=== PATIENT | female | born 1940 | race Caucasian/White ===

== ENCOUNTER → 2019-06-07 | Outpatient (CLI) | payer MEDICARE, OTHER ==
[2019-06-07 15:13] LABS: BASO % 0.1 % (0.0-1.0); EOS % 0.1 % (0.0-3.0); HEMATOCRIT 36.8 % (36.0-47.0); HEMOGLOBIN 12.4 g/dl (12.0-15.5); LYMPH # 1.4 10^3/uL (1.5-5.0); MEAN CORPUSCULAR HEMOGLOBIN 31.4 pg (27.0-33.0); MEAN CORPUSCULAR HGB CONC 33.7 g/dl (32.0-36.5); MEAN CORPUSCULAR VOLUME 93.2 fl (80.0-96.0); MONO # 0.4 10^3/uL (0.0-0.8); MONO % 5.6 % (0.0-5.0); NEUTROPHILS # 5.7 10^3/uL (1.5-8.5); NEUTROPHILS % 74.9 % (36.0-66.0); PLATELET COUNT, AUTOMATED 239 10^3/uL (150-450); RED BLOOD COUNT 3.95 10^6/uL (4.00-5.40); WHITE BLOOD COUNT 7.6 10^3/uL (4.0-10.0)
[2019-06-07 15:43] LABS: ALBUMIN 3.6 GM/DL (3.2-5.2); ALT/SGPT 27 U/L (12-78); BILIRUBIN,TOTAL 0.6 MG/DL (0.2-1.0); BLOOD UREA NITROGEN 16 MG/DL (7-18); C REACTIVE PROTEIN QUANTITATIV < 0.30 MG/DL (0.00-0.30); CALCIUM LEVEL 9.3 MG/DL (8.8-10.2); CARBON DIOXIDE LEVEL 23 MEQ/L (21-32); CHLORIDE LEVEL 110 MEQ/L (98-107); CREATININE FOR GFR 0.79 MG/DL (0.55-1.30); GLOMERULAR FILTRATION RATE > 60.0 (>39); GLUCOSE, FASTING 112 MG/DL (70-100); IRON (FE) 74 UG/DL (50-170); PERCENT SATURATION 21.8 % (13.2-45.0); POTASSIUM SERUM 4.3 MEQ/L (3.5-5.1); SODIUM LEVEL 142 MEQ/L (136-145); TOTAL IRON BINDING CAPACITY 340 UG/DL (250-450); TOTAL PROTEIN 7.4 GM/DL (6.4-8.2)
[2019-06-07 15:47] LABS: VITAMIN B12 LEVEL 380 PG/ML (247-911)
== END ==
LOC: M LAB 14:18
PROVIDERS: ATTEND Internal Medicine Gastroenterology
DX: K50.018 Crohn's disease of small intestine with other complication (principal)

== ENCOUNTER → 2019-06-09 | Outpatient (REF) | payer MEDICARE, OTHER | LOC: M LAB REF 14:51 | PROVIDERS: ATTEND Internal Medicine Gastroenterology | DX: R19.4 Change in bowel habit (principal) ==

== ENCOUNTER → 2019-09-30 | Outpatient (CLI) | payer MEDICARE, OTHER | LOC: M LABSMTC 08:45 | PROVIDERS: ATTEND Orthopaedic Surgery | DX: Z11.59 Encounter for screening for other viral diseases (principal) | CPT/HCPCS: C9803; U0003 ==

== ENCOUNTER → 2020-07-05 | Outpatient (CLI) | payer MEDICARE, OTHER ==
[~2020-07-05] MED LIST: BUDE3CAP PO; CALC1TAB30 PO; CETI-36 PO; COLE625T PO; COQ1200C PO; EZET10TA21 PO; FERR325T82 PO; FURO20TA2 PO; JANU100T PO; METF10004 PO; METO1TAB7 PO; MIRA0.12 PO; OMEG1CAP85 PO; OMEP-218 PO; REST0.05 OU; ROSU10TA6 PO; SLOWTAB2 PO; VALS1TAB67 PO; VITMTA PO; [UNRECOGNIZED DRUG - CODE] PO
== END ==
LOC: M LABSMTC 12:49
PROVIDERS: ATTEND Anesthesiology
DX: Z01.812 Encounter for preprocedural laboratory examination (principal); Z20.828 Contact with and (suspected) exposure to other viral communicable diseases

== ENCOUNTER 2020-07-10 07:55 | Day surgery (SDC) | payer MEDICARE, OTHER ==
[~2020-07-10] VITALS: Ht 162.6 cm; Wt 62.1 kg
[~2020-07-10 07:55] MED LIST changes: +ALBUTEROL SULFATE 2.5 MG/0.5 ML INH NEB SOLN INH ONE; +CETACAINE SPRAY 5GM As Ordered ONE; +EPINEPHrine 1MG/10ML SYRINGE 1.5IN As Ordered ONE; +LIDOCAINE 1% SDV 30ML VIAL As Ordered ONE; +LIDOCAINE 4% INJ 5ML AMP INH ONE; +LR 1,000 ML IV ONE; +THROMBIN SOLN 5,000 UNITS VIAL As Ordered ONE
[2020-07-10] MEDS ORDERED: propofoL 200 MG/20 ML VIAL As Ordered ONE (08:18)
[2020-07-10] MEDS ORDERED: LIDOCAINE 2% 100MG/5ML SDV (FOR ANES.) As Ordered ONE (08:18)
[2020-07-10] MEDS ORDERED: dexameTHASONE 4 MG/ML 1ML VIAL (J1100 PER 1MG) As Ordered ONE (08:19)
[2020-07-10] MEDS ORDERED: MIDAZOLAM INJ 2MG/2ML VIAL (J2250 PER 1MG) As Ordered ONE (08:19)
[2020-07-10] MEDS ORDERED: ONDANSETRON 4MG/2ML VIAL As Ordered ONE (08:19)
[2020-07-10] MEDS ORDERED: fentaNYL 100 MCG/2 ML INJECTION (J3010) As Ordered ONE (08:19)
[2020-07-10] MEDS ORDERED: ROCURONIUM BROMIDE 50 MG/5 ML VIAL As Ordered ONE (08:19)
[2020-07-10] MEDS ORDERED: CETACAINE SPRAY 5GM As Ordered ONE (09:16)
[2020-07-10] MEDS ORDERED: SUGAMMADEX SODIUM 500 MG/5 ML VIAL (BRIDION) As Ordered ONE (10:16)
[2020-07-10] MEDS ORDERED: PHENYLephrine 500MCG 5ML (100MCG/ML) SYRINGE As Ordered ONE (10:17)
--- NOTE | 2020-07-10 11:14 | ROOR ---
Patient Name: Tami Benitez Procedure Date: 07/10/2020 9:28 AM Date of : 1940 Admit Type: Outpatient Age: 80 Note Status: Finalized Attending MD: Rissa Joe MD Procedure: Bronchoscopy Indications: Right lower lobe nodule Providers: Rissa Joe MD (Doctor), [facility] Referring MD: Hernán Montejo DO (Referring MD) Requesting Physician: Medicines: Lidocaine 4% via nebulizer with Albuterol 2.5 mg, Cetacaine topical, Epinephrine 1 mg/10 mL topical 1 mL, General Anesthesia Complications: No immediate complications. Estimated blood loss: Minimal Procedure: Pre-Anesthesia Assessment: - Prior to the procedure, a History and Physical was performed, and patient medications and allergies were reviewed. The patient's tolerance of previous anesthesia was also reviewed. The risks and benefits of the procedure and the sedation options and risks were discussed with the patient. All questions were answered, and informed consent was obtained. Prior Anticoagulants: The patient has taken no previous anticoagulant or antiplatelet agents. ASA Grade Assessment: III - A patient with severe systemic disease. After reviewing the risks and benefits, the patient was deemed in satisfactory condition to undergo the procedure. - Patient identification and proposed procedure were verified prior to the procedure by the physician, the nurse, the anesthesiologist, the lead coater and the occupational therapy technician. The procedure was verified in the procedure room. The Bronchoscope was introduced through the mouth, via the endotracheal tube (the patient was intubated for the procedure) and advanced to the tracheobronchial tree of both lungs. The procedure was accomplished without difficulty. The patient tolerated the procedure well. Findings: The endotracheal tube is in good position. The visualized portion of the trachea is of normal caliber. The henrry is sharp. The tracheobronchial tree was examined to at least the first subsegmental level. Bronchial mucosa and anatomy are normal with some mucosal webbing and pitting and areas of anthracotic pigmentation noted. There was no endobronchial lesions and no significant secretions noted. [id number] robotic Electromagnetic navigation bronchoscopy was performed. The CT scan was used for planning purposes. A virtual bronchoscopic image was generated using the planning software. The target in the posterior basal segment of the right lower lobe was marked. A nodule 2 cm in size was found and a pathway was created. After a complete airway examination was performed using a white light bronchoscope the robotic EM navigation phase was then begun to locate the target lesion(s). During naviation in the bronchus leading to target lesion in the distal subsegmental branch of the right lower lobe posterior basal segment the mucosa appeared edematous and there was some narrowing of the airway noted. Positioning centrally (in relation to the lesion) was confirmed using the Olympus radial probe US catheter. Transbronchial biopsies of a nodule were performed in the posterior basal segment of the right lower lobe using forceps and sent for histopathology examination. The procedure was guided by fluoroscopy. Transbronchial biopsy technique was selected because the sampling site was not visible endoscopically. An endobronchial ultrasound endoscope was utilized in the right paratracheal area, in the subcarinal area and in the right hilum to assess the lymph nodes. There were no pathologically enlarged lymph nodes noted at those sites and no needle aspiration performed. Impression: - Right lower lobe nodule - The airway examination was normal. - Electromagnetic navigation bronchoscopy was performed. - Transbronchial lung biopsies were performed. - Endobronchial ultrasound was performed. Recommendation: - The patient will be observed post-procedure, until all discharge criteria are met. Procedure Code(s): --- Professional --- 03617, Bronchoscopy, rigid or flexible, including fluoroscopic guidance, when performed; with transbronchial lung biopsy(s), single lobe 30144, Bronchoscopy, rigid or flexible, including fluoroscopic guidance, when performed; with computer-assisted, image-guided navigation (List separately in addition to code for primary procedure[s]) 42233, Bronchoscopy, rigid or flexible, including fluoroscopic guidance, when performed; with transendoscopic endobronchial ultrasound (EBUS) during bronchoscopic diagnostic or therapeutic intervention(s) for peripheral lesion(s) (List separately in addition to code for primary procedure[s]) CPT copyright 2019 [employer] [place] [employer]. All rights reserved. The codes documented in this report are preliminary and upon line assembly utility worker review may be revised to meet current compliance requirements. Rissa Joe MD 07/10/2020 11:13:51 AM Carter Tee DO, [facility] Number of Addenda: 0 Note Initiated On: 07/10/2020 9:28 AM
[2020-07-10] MEDS ORDERED: ONDANSETRON 4MG/2ML VIAL IV PRN (11:20)
[2020-07-10] MEDS ORDERED: NORCO, ANEXSIA 5/325MG TABLET (HYDROcodone/ACETAMINOPHEN) PO PRN (11:20)
[2020-07-10] MEDS ORDERED: fentaNYL 100 MCG/2 ML INJECTION (J3010) IV PRN (11:20)
[2020-07-10] MEDS ORDERED: LR 1,000 ML IV SCH (11:20)
--- NOTE | 2020-07-10 11:27 | REP ---
INDICATION: POST BRONCH COMPARISON: None. TECHNIQUE: Portable AP view of the chest FINDINGS: Mediastinum and cardiac silhouette are normal. Lung abarca demonstrate chronic interstitial changes. Superimposed right lower lobe infiltrate and 2 small biopsy clips identified at the right base. No effusion. No pneumothorax. IMPRESSION: Right lower lobe opacity. No prior examinations are available for comparison. <Electronically signed by Ritchie Townsend > 07/10/20 1122
[2020-07-10 12:00] VITALS: BP 174/72
== END 2020-07-10 13:00 | disposition home or self-care (01) ==
LOC: M SDC 07:55
PROVIDERS: ATTEND Internal Medicine Pulmonary Disease
DX: C34.31 Malignant neoplasm of lower lobe, right bronchus or lung (principal); E78.5 Hyperlipidemia, unspecified; I10 Essential (primary) hypertension; E11.9 Type 2 diabetes mellitus without complications; Z98.61 Coronary angioplasty status; F41.9 Anxiety disorder, unspecified; Z79.84 Long term (current) use of oral hypoglycemic drugs; Z79.899 Other long term (current) drug therapy; Z87.891 Personal history of nicotine dependence; Z88.0 Allergy status to penicillin; Z88.1 Allergy status to other antibiotic agents
CPT/HCPCS: 31627; 31628; 31654; 71045; 76000; 88305; A4648; J1100; J2250; J2370; J2405; J3010; S2900

== ENCOUNTER → 2020-08-13 | Outpatient (CLI) | payer MEDICARE, OTHER ==
[~2020-08-13] MED LIST changes: -ALBUTEROL SULFATE 2.5 MG/0.5 ML INH NEB SOLN INH ONE; -CETACAINE SPRAY 5GM As Ordered ONE; -EPINEPHrine 1MG/10ML SYRINGE 1.5IN As Ordered ONE; -LIDOCAINE 1% SDV 30ML VIAL As Ordered ONE; -LIDOCAINE 4% INJ 5ML AMP INH ONE; -LR 1,000 ML IV ONE; -THROMBIN SOLN 5,000 UNITS VIAL As Ordered ONE
--- NOTE | 2020-08-14 08:30 | RADONC.CN ---
Radiation Oncology Hx/Consult Radiation Oncology Consult Date of Service: Aug 13, 2020 Pt Identifier Tami Benitez is a 80 year old female former smoker with a recently diagnosed RLL [id number] stage IA3 NSCLC. She is seen today for consideration of SBRT. Diagnosis/Treatment History Oncologic History 05/27/20 CT chest during hospital admission for UTI/sepsis showed RLL nodule 2 cm in extent sitting on diaphragm, also scattered ground glass opacities. Post- hospitalization course complicated by C diff. 07/10/20 EBUS biopsy (Dr. Joe) showing NSCLC PDL1 1% no target gene rearrangements 08/07/20 PET-CT Avidity in RLL nodule, 2 mildly avid RUL ground glass opacities 06/21/20 PFTs FVC 1.84 (81% pred) FEV1 1.23 (73% pred) FEV1/FVC 67% (90% pred) Borderline obstructive ratio Interval History Here with supportive daughter. Patient notes her breathing is good, she is able to attend to ADLs. Daughter expressed concerns regarding memory since her hospitalizations in May and more recently notable since anesthesia for bronch oscopy. Tami has good appetite and is maintaining stable weight. She has minimal cough, no hemoptysis. Past Medical History: Anemia Osteoarthritis C diff CVD Crohns GERD HPL HTN RLS Past Surgical History: Appendectomy PCI w/ stents Cataracts Hysterectomy Subtotal colectomy Right knee surgery Tonsillectomy Family History: Daughter breast cancer Daughter ovarian cancer Social History: 20 pack year former smoker quit 1990s Non drinker Retired RN Allergies / Meds Allergies: Coded Allergies: DYE'S (COLOR'S NOT IODINATED) (Verified Allergy, Unknown, FD&C # 5, 02/19/14) Penicillins (Verified Allergy, Unknown, 07/09/20) TAPE (Verified Allergy, Unknown, BANDAIDS, 11/16/14) brompheniramine (Verified Allergy, Unknown, FROM DIMETANE, 07/09/20) erythromycin base (Verified Allergy, Unknown, 07/09/20) tetracycline (Verified Allergy, Unknown, 07/09/20) Home Meds Reported Medications Magnesium Chloride (Slow-Mag) 71.5 Mg Tablet., 1 TAB PO BID, TAB 07/05/20 Multivitamins (Thera M Plus Tablet) 1 Each Tablet, 1 TAB PO DAILY, TAB 07/05/20 Guaifenesin (Mucus Relief) 400 Mg Tablet, 400 MG PO DAILY, TAB 07/05/20 Ferrous Sulfate (Iron) 325 Mg Tablet, 325 MG PO DAILY, TAB 07/05/20 Ubidecarenone (Co Q-10) 200 Mg Capsule, 200 MG PO DAILY, CAP 07/05/20 Cetirizine HCl (ZyrTEC) 10 Mg Tab.rapdis, 10 MG PO DAILY 07/05/20 Calcium Carbonate/Vitamin D3 (Calcium 500-Vit D3 200 Caplet) 1 Each Tablet, 1 TAB PO DAILY, TAB 07/05/20 Cyclosporine (Restasis) 0.05% Droperette, 1 DROP OU BID 07/05/20 Metformin HCl (Metformin HCl) 1,000 Mg Tablet, 1000 MG PO BID 07/05/20 Ezetimibe (Ezetimibe) 10 Mg Tablet, 10 MG PO DAILY 07/05/20 Rosuvastatin Calcium (Rosuvastatin Calcium) 10 Mg Tablet, 10 MG PO DAILY 07/05/20 Valsartan (Valsartan) 160 Mg Tablet, 320 MG PO DAILY 07/05/20 Omeprazole (Omeprazole) 20 Mg Capsule.dr, 20 MG PO DAILY 07/05/20 Budesonide (Budesonide EC) 3 Mg Capdr...er, 9 MG PO DAILY 07/05/20 Colesevelam HCl (Colesevelam HCl) 625 Mg Tablet, 1250 MG PO DAILY 07/05/20 Pramipexole Di-HCl (Mirapex) 0.125 Mg Tablet, 0.125 MG PO DAILY 07/05/20 Sitagliptin Phosphate (Januvia) 100 Mg Tablet, 100 MG PO DAILY 07/05/20 Metoprolol Succinate (Metoprolol Succinate) 50 Mg Tab.er.24h, 50 MG PO DAILY 07/05/20 Furosemide (Furosemide) 20 Mg Tablet, 20 MG PO DAILY 07/05/20 [place]-3 Acid Ethyl Esters ([place]-3 Acid Ethyl Esters) 1 Gm Capsule, 1 GM PO DAILY 07/05/20 Review of Systems General: Reports: Normal Appetite Constitutional: Denies: Chills, Fever, Night Sweats Eyes: Denies: Pain, Vision change HEENT: Denies: Head Aches, Dysphagia, Sore Throat Skin: Denies: Rash, Lesions, Bruising Pulmonary: Denies: Dyspnea, Cough Cardiovascular: Denies: Chest Pain, Palpitations, Edema Gastrointestinal: Denies: Nausea, Vomiting, Abdominal Pain, Diarrhea Genitourinary: Denies: Dysuria, Frequency, Incontinence Hematologic: Denies: Bruising, Petecchia, Enlarged Lymph Nodes Musculoskeletal: Denies: Neck pain, Back pain Neurological: Denies: Weakness, Numbness, Incoordination Psych: Reports: Mood Normal, Memory Issues; Denies: Thoughts of Self Harm Vital Signs Ht 62" Wt 131 lbs BMI 24 P 103 RR 18 BP 126/67 O2 98% Pain 0 Fatigue 1 General Exam: Positive: Alert, Cooperative, No Acute Distress, Oriented Times Three Eye Exam: Positive: PERRLA, EOMI ENT EXAM: Positive: Atraumatic Neck Exam: Positive: Supple Chest Exam: Positive: Clear to auscultation, Normal air movement; Negative: Wheezing, Diminished Heart Exam: Positive: Rate Normal, Regular Rhythm Abdomen Exam: Positive: Soft; Negative: Tenderness Extremity Exam: Positive: Edema (1+ pretibial BL) Skin Exam: Positive: Nl turgor and temperature Neuro Exam: Positive: Normal Gait, Normal Speech, Cranial Nerves 3-12 NL Psych Exam: Positive: Mental status NL, Other (Flat affect/? masked facies, no tremor noted) Diagnostic and Laboratory Diagnostic Review Radiologic images, relevant labs and pathology reports were personally reviewed and discussed with Ms. Benitez. Assessment and Plan Impression Ms. Benitez is a 80 year old female with a history of former smoker with a recently diagnosed RLL [id number] stage IA3 NSCLC. She is seen today for consideration of SBRT. Stage RLL NSCLC [id number] stage IA3 Performance Status ECOG 1 Plan We had an extensive discussion with Ms. Benitez regarding the diagnosis at hand and available therapeutic options. She seems to have recovered from her recent bouts of infection. I wonder if her reported memory issues are residual from acute illness, or from anesthesia for her bronchoscopy. At any rate given her stage, routine MRI for staging is not indicated, but I will have a low threshold for neuroimaging if she, or her daughter, perceive worsening cognitive function from here on. I reviewed her imaging with her and she has a 2 cm lesion sitting on the diaphragm. Its location is favorable for SBRT. I would give 60 Gy in 5 fractions with DCA/4DCT/ITV based planning. This will be minimally morbid for her and caries a high probability of durable local control. I explained that we would monitor the additional ground glass foci in the RUL and if they coalesce into nodular lesions, then we could proceed with SBRT again, and I would be comfortable doing so without biopsy given her age and seeming poor tolerance of anesthesia. We discussed the logistics of receiving radiation therapy in detail including the need for a 1-time planning session. This can occur in the next week. We reviewed the side effects of treatment including fatigue, 5-10% pneumonitis risk and late fibrosis. After discussing the risks, benefits and alternatives to radiation therapy, Ms. Benitez was amenable to pursuing radiotherapy. All questions were answered to the patient's satisfaction. We instructed the patient that if there were any questions,concerns or changes in clinical status in the interim to contact us. Recommendations SBRT 60 Gy in 5 fractions with DCA/4DCT/ITV planning Simulation in the next week Will hold on brain imaging for now Billing Statement Total time of [48] minutes was spent preparing for the visit [2], obtaining HPI [10], examining the patient [4], reviewing diagnostic tests [5], discussing olivia gement options [15], coordinating care [3], and writing this note [9]. VICKI PRASAD MD Aug 14, 2020 08:30
== END ==
LOC: M ONCR 14:23
PROVIDERS: ATTEND General Practice
DX: C34.31 Malignant neoplasm of lower lobe, right bronchus or lung (principal); E78.5 Hyperlipidemia, unspecified; I10 Essential (primary) hypertension; K21.9 Gastro-esophageal reflux disease without esophagitis; K50.90 Crohn's disease, unspecified, without complications; M12.9 Arthropathy, unspecified; Z79.84 Long term (current) use of oral hypoglycemic drugs; Z79.899 Other long term (current) drug therapy; Z87.891 Personal history of nicotine dependence; Z88.0 Allergy status to penicillin; Z88.1 Allergy status to other antibiotic agents; Z88.8 Allergy status to other drugs, medicaments and biological substances; Z91.048 Other nonmedicinal substance allergy status; Z91.09 Other allergy status, other than to drugs and biological substances

== ENCOUNTER 2020-09-13 13:50 | Outpatient (RCR) | payer MEDICARE, OTHER ==
[~2020-09-13 13:50] MED LIST changes: +GUAI400T12 PO; -[UNRECOGNIZED DRUG - CODE] PO
== END 2020-09-14 ==
LOC: M ONCR 13:50
PROVIDERS: ATTEND General Practice
DX: C34.31 Malignant neoplasm of lower lobe, right bronchus or lung (principal)

== ENCOUNTER 2020-11-25 14:40 | Outpatient (CLI) | payer MEDICARE, OTHER ==
[~2020-11-25] VITALS: Ht 154.9 cm; Wt 58.5 kg
[2020-11-25 15:00] VITALS: BP 174/74
[2020-11-25] MEDS ORDERED: VEDOLIZUMAB 300 MG in NS 250 ML IV ONE (15:00)
[2020-11-25 16:35] VITALS: BP 155/65
[2020-11-25] MEDS ORDERED: CRES10TA PO (16:36)
== END 2020-11-25 16:35 | disposition home or self-care (01) ==
LOC: M INFU 14:40
PROVIDERS: ATTEND Internal Medicine Gastroenterology
DX: K50.90 Crohn's disease, unspecified, without complications (principal); Z88.0 Allergy status to penicillin; Z88.1 Allergy status to other antibiotic agents; Z91.048 Other nonmedicinal substance allergy status
CPT/HCPCS: 96365; J3380

== ENCOUNTER 2020-12-09 14:49 | Outpatient (CLI) | payer MEDICARE, OTHER ==
[~2020-12-09] VITALS: Ht 154.9 cm; Wt 58.5 kg
[~2020-12-09 14:49] MED LIST changes: +CRES10TA PO; -GUAI400T12 PO; +GUAI400T41 PO; +VEDOLIZUMAB 300 MG in NS 250 ML IV ONE
[2020-12-09 15:14] VITALS: BP 130/60
[2020-12-09 16:00] VITALS: BP 140/68
== END 2020-12-09 16:15 | disposition home or self-care (01) ==
LOC: M INFU 14:49
PROVIDERS: ATTEND Internal Medicine Gastroenterology
DX: K50.90 Crohn's disease, unspecified, without complications (principal); Z88.0 Allergy status to penicillin; Z88.1 Allergy status to other antibiotic agents; Z88.8 Allergy status to other drugs, medicaments and biological substances
CPT/HCPCS: 96365; J3380

== ENCOUNTER → 2020-12-12 | Outpatient (CLI) | payer MEDICARE, OTHER ==
[~2020-12-12] MED LIST changes: +ISOVUE-370 76% 100ML VIAL As Ordered ONE; -VEDOLIZUMAB 300 MG in NS 250 ML IV ONE
--- NOTE | 2020-12-12 15:36 | REPVR ---
PROCEDURE INFORMATION: Exam: CT Chest With Contrast; Diagnostic Exam date and time: 12/12/2020 1:41 PM Age: 80 years old Clinical indication: Condition or disease; Lung condition and disease; Cancer of the lung; Right; Unspecified; Additional info: Lung CA TECHNIQUE: Imaging protocol: Diagnostic computed tomography of the chest with contrast. 3D rendering (Not supervised by radiologist): MIP and/or 3D reconstructed images were created by the technologist. Radiation optimization: All CT scans at this facility use at least one of these dose optimization techniques: automated exposure control; mA and/or kV adjustment per patient size (includes targeted exams where dose is matched to clinical indication); or iterative reconstruction. Contrast material: ISOVUE 370; Contrast volume: 75 ml; Contrast route: INTRAVENOUS (IV); COMPARISON: PET/CT SKULL BASE TO MID THIGH - OUTSIDE PRIOR 08/07/2020 9:50 AM FINDINGS: Thyroid: Cystic lesion measuring 10 x 7 mm involving left lobe the thyroid gland. This appears similar to the noncontrast PET CT portion. Lungs: There is a right lower lobe mass with calcification. Is stable in size. There is a subtle area of ground-glass appearance noted with subtle nodularity in the right upper lobe slightly larger in the skull/area. Subtle area of haziness is again seen stable in the left upper lobe. Stable hazy ground-glass area posteriorly in the right upper lobe. Pleural spaces: Unremarkable. No pneumothorax. No pleural effusion. Heart: Unremarkable. No cardiomegaly. No pericardial effusion. Aorta: Unremarkable. No aortic aneurysm. Lymph nodes: Calcified mediastinal and hilar adenopathy which are subcentimeter in size. Bones/joints: Arthritic [id number] age-related changes in the spine. Soft tissues: Anterior mediastinal stable soft tissue nodule measuring 11 by 10 mm image . IMPRESSION: Stable examination with the exception of slight enlargement of a subtle area of ground-glass appearance with nodularity involving the right upper lobe image /. COMMENTS: Consistent with the [place] [employer]'s Incidental Findings Committee white paper (J Am Aliya Radiol 2015): In patients aged 35 years and older with an incidental thyroid nodule equal to or greater than 1.[address], MRI or extrathyroidal US, further evaluation with dedicated thyroid US is recommended for patients with normal life expectancy and without comorbidities. For smaller nodules without suspicious features, no further evaluation or follow up is recommended. Electronically signed by: Phi Boston On 12/12/2020 15:35:26 PM
== END ==
LOC: M RAD 12:56
PROVIDERS: ATTEND General Practice
DX: C34.31 Malignant neoplasm of lower lobe, right bronchus or lung (principal); R91.8 Other nonspecific abnormal finding of lung field; R93.89 Abnormal findings on diagnostic imaging of other specified body structures; R93.7 Abnormal findings on diagnostic imaging of other parts of musculoskeletal system
CPT/HCPCS: 71260; Q9967

== ENCOUNTER → 2020-12-13 | Outpatient (CLI) | payer MEDICARE, OTHER ==
[~2020-12-13] MED LIST changes: -ISOVUE-370 76% 100ML VIAL As Ordered ONE
--- NOTE | 2020-12-13 16:31 | RADONC ---
Radiation Oncology Hx/FUP Radiation Oncology Hx/FUP Date of Service: Dec 13, 2020 Pt Identifier Tami Benitez is a 80 year old female former smoker seen for a followup visit today at the department of radiation oncology for a history of RLL [id number] stage IA3 NSCLC. She completed SBRT to the lesion 60 Gy in 5 fractions 09/09/20- 09/13/20. Diagnosis/Treatment History Oncologic History 05/27/20 CT chest during hospital admission for UTI/sepsis showed RLL nodule 2 cm in extent sitting on diaphragm, also scattered ground glass opacities. Post- hospitalization course complicated by C diff. 07/10/20 EBUS biopsy (Dr. Joe) showing NSCLC PDL1 1% no target gene rearra ngements 08/07/20 PET-CT Avidity in RLL nodule, 2 mildly avid RUL ground glass opacities 09/09/20-09/13/20 SBRT 60 Gy in 5 fractions Recent data: 12/12/20 CT chest Stable exam. RLL lesion without growth. Survivorship: Test Due Next Last result Notes TSH, T4* 6m post-tx, then q1y N/A Carotid US* q10 y post-tx N/A Smoking cessation Assess annually if applicable N/A Quit >20 years ago Chest imaging As indicated, indefinite CT surveillance 05/202112/12/20 Stable Mammograms Min q1y, in eligible female patients N/A Echocardiogram q10y post treatment if mediastinum treated N/A PFTs As indicated N/A CBC,CMP, Lipids q1y 05/2021 Interval History Here with her daughter, had some fatigue after SBRT but no pulmonary side effects. No CP, SOB today. Appetite good and weight stable. Current Therapy Surveillance Stage RLL [id number] stage IA3 NSCLC Social History: 20 pack year former smoker quit Non drinker Retired RN Allergies / Meds Allergies: Coded Allergies: DYE'S (COLOR'S NOT IODINATED) (Verified Allergy, Unknown, FD&C # 5, 02/19/14) Penicillins (Verified Allergy, Unknown, 07/09/20) TAPE (Verified Allergy, Unknown, BANDAIDS, 11/16/14) brompheniramine (Verified Allergy, Unknown, FROM DIMETANE, 07/09/20) erythromycin base (Verified Allergy, Unknown, 07/09/20) tetracycline (Verified Allergy, Unknown, 07/09/20) Home Meds Reported Medications Rosuvastatin Calcium (Crestor) 10 Mg Tablet, 1 TAB PO DAILY for 30 Days, #30 TAB 11/25/20 Magnesium Chloride (Slow-Mag) 71.5 Mg Tablet.dr, 1 TAB PO BID, TAB 07/05/20 Multivitamins (Thera M Plus Tablet) 1 Each Tablet, 1 TAB PO DAILY, TAB 07/05/20 Guaifenesin (Mucus Relief) 400 Mg Tablet, 400 MG PO DAILY, TAB 07/05/20 Ferrous Sulfate (Iron) 325 Mg Tablet, 325 MG PO DAILY, TAB 07/05/20 Ubidecarenone (Co Q-10) 200 Mg Capsule, 200 MG PO DAILY, CAP 07/05/20 Cetirizine HCl (ZyrTEC) 10 Mg Tab.rapdis, 10 MG PO DAILY 07/05/20 Calcium Carbonate/Vitamin D3 (Calcium 500-Vit D3 200 Caplet) 1 Each Tablet, 1 TAB PO DAILY, TAB 07/05/20 Cyclosporine (Restasis) 0.05% Droperette, 1 DROP OU BID 07/05/20 Metformin HCl (Metformin HCl) 1,000 Mg Tablet, 1000 MG PO BID 07/05/20 Ezetimibe (Ezetimibe) 10 Mg Tablet, 10 MG PO DAILY 07/05/20 Valsartan (Valsartan) 160 Mg Tablet, 320 MG PO DAILY 07/05/20 Omeprazole (Omeprazole) 20 Mg Capsule.dr, 20 MG PO DAILY 07/05/20 Colesevelam HCl (Colesevelam HCl) 625 Mg Tablet, 1250 MG PO DAILY 07/05/20 Pramipexole Di-HCl (Mirapex) 0.125 Mg Tablet, 0.125 MG PO DAILY 07/05/20 Sitagliptin Phosphate (Januvia) 100 Mg Tablet, 100 MG PO DAILY 07/05/20 Metoprolol Succinate (Metoprolol Succinate) 50 Mg Tab.er.24h, 50 MG PO DAILY 07/05/20 Furosemide (Furosemide) 20 Mg Tablet, 20 MG PO DAILY 07/05/20 [place]-3 Acid Ethyl Esters ([place]-3 Acid Ethyl Esters) 1 Gm Capsule, 1 GM PO DAILY 07/05/20 Review of Systems Review of Systems Constitutional: Denies: Fatigue, Weight Loss Eyes: Denies: Pain HEENT: Denies: Head Aches Skin: Denies: Rash Pulmonary: Denies: Dyspnea, Cough Cardiovascular: Denies: Chest Pain Gastrointestinal: Denies: Abdominal Pain Neurological: Denies: Weakness, Numbness Psych: Reports: Mood Normal Physical Examination Vital Signs Wt 131 lbs T 96.6 P 77 RR 18 BP 141/68 O2 98% Pain 0 Fatigue 0 General Exam: Alert, Cooperative, No Acute Distress Eye Exam: PERRLA, EOMI ENT EXAM: Atraumatic Neck Exam: Supple Chest Exam: Clear to auscultation, Normal air movement; Negative: Wheezing Heart Exam: Rate Normal, Regular Rhythm Abdomen Exam: Soft Extremity Exam: Negative: Edema Skin Exam: Nl turgor and temperature Neuro Exam: Normal Gait, Normal Speech, Cranial Nerves 3-12 NL Psych Exam: Mental status NL Diagnostic and Laboratory Diagnostic Review Radiologic images, relevant labs and pathology reports were personally reviewed and discussed with Ms. Benitez. Assessment and Plan Impression Assessment Ms. Benitez is a 80 year old female with a history of former smoker seen for a followup visit today at the department of radiation oncology for a history of RLL [id number] stage IA3 NSCLC. She completed SBRT to the lesion 60 Gy in 5 fractions 09/09/20-09/13/20. Tami is doing well. No side effects from SBRT. The treated lesion sitting on the diaphragm in the RLL is stable to slightly improved on the current CT chest. I recommend another scan in 6 months time. Performance Status ECOG [address] chest in 6 months Ms. Benitez was encouraged to call with questions or concerns in the interim period. Billing Statement Total time of [22] minutes was spent preparing for the visit [1], obtaining HPI [4], examining the patient [4], reviewing diagnostic tests [3], discussing management options [4], coordinating care [1], and writing this note [5]. VICKI PRASAD MD Dec 13, 2020 16:31
== END ==
LOC: M ONCR 13:47
PROVIDERS: ATTEND General Practice
DX: C34.31 Malignant neoplasm of lower lobe, right bronchus or lung (principal); Z79.899 Other long term (current) drug therapy; Z87.891 Personal history of nicotine dependence; Z88.0 Allergy status to penicillin; Z88.1 Allergy status to other antibiotic agents; Z91.048 Other nonmedicinal substance allergy status; Z91.09 Other allergy status, other than to drugs and biological substances; Z92.3 Personal history of irradiation

== ENCOUNTER 2021-01-06 14:46 | Outpatient (CLI) | payer MEDICARE, OTHER ==
[~2021-01-06] VITALS: Ht 154.9 cm; Wt 58.5 kg
[2021-01-06 15:00] VITALS: BP 147/65
[2021-01-06] MEDS ORDERED: VEDOLIZUMAB 300 MG in NS 250 ML IV ONE (15:00)
[2021-01-06 16:30] VITALS: BP 119/58
== END 2021-01-06 16:30 | disposition home or self-care (01) ==
LOC: M INFU 14:46
PROVIDERS: ATTEND Internal Medicine Gastroenterology
DX: K50.90 Crohn's disease, unspecified, without complications (principal); Z88.0 Allergy status to penicillin; Z88.1 Allergy status to other antibiotic agents; Z88.8 Allergy status to other drugs, medicaments and biological substances
CPT/HCPCS: 96365; J3380

== ENCOUNTER → 2021-01-08 | Outpatient (REF) | payer MEDICARE, OTHER | LOC: M LAB REF 12:24 | PROVIDERS: ATTEND Internal Medicine Gastroenterology | DX: K50.018 Crohn's disease of small intestine with other complication (principal); Z98.0 Intestinal bypass and anastomosis status; R19.7 Diarrhea, unspecified ==

== ENCOUNTER → 2021-02-19 | Outpatient (CLI) | payer MEDICARE, OTHER ==
[~2021-02-19] MED LIST changes: +OMEP-173 PO; -OMEP-218 PO
== END ==
LOC: M LAB 16:54
PROVIDERS: ATTEND Internal Medicine Gastroenterology
DX: K50.018 Crohn's disease of small intestine with other complication (principal); Z79.899 Other long term (current) drug therapy
CPT/HCPCS: 36415; 80053; 82607; 83550; 84439; 84443; 85025; G0463

== ENCOUNTER 2021-03-04 15:17 | Outpatient (CLI) | payer MEDICARE, OTHER ==
[~2021-03-04] VITALS: Ht 154.9 cm; Wt 58.5 kg
[~2021-03-04 15:17] MED LIST changes: +VEDOLIZUMAB 300 MG in NS 250 ML IV ONE
[2021-03-04] MEDS ORDERED: VEDOLIZUMAB 300 MG in NS 250 ML IV ONE (15:30)
[2021-03-04 16:21] VITALS: BP 113/58
[2021-03-04 16:55] VITALS: BP 147/69
== END 2021-03-04 17:05 | disposition home or self-care (01) ==
LOC: M INFU 15:17
PROVIDERS: ATTEND Internal Medicine Gastroenterology
DX: K50.90 Crohn's disease, unspecified, without complications (principal); Z88.1 Allergy status to other antibiotic agents; Z88.0 Allergy status to penicillin; Z88.8 Allergy status to other drugs, medicaments and biological substances
CPT/HCPCS: 96365; J3380

== ENCOUNTER 2021-04-28 15:19 | Outpatient (CLI) | payer MEDICARE, OTHER ==
[~2021-04-28] VITALS: Ht 154.9 cm; Wt 58.5 kg
[2021-04-28 15:53] VITALS: BP 136/61
[2021-04-28 16:30] VITALS: BP 114/57
== END 2021-04-28 16:30 | disposition home or self-care (01) ==
LOC: M INFU 15:19
PROVIDERS: ATTEND Internal Medicine Gastroenterology
DX: K50.90 Crohn's disease, unspecified, without complications (principal); Z88.0 Allergy status to penicillin; Z88.1 Allergy status to other antibiotic agents; Z88.8 Allergy status to other drugs, medicaments and biological substances
CPT/HCPCS: 96365; J3380

== ENCOUNTER → 2021-06-18 | Outpatient (CLI) | payer MEDICARE, OTHER ==
[~2021-06-18] MED LIST changes: +ISOVUE-370 76% 100ML VIAL As Ordered ONE; -VEDOLIZUMAB 300 MG in NS 250 ML IV ONE
== END ==
LOC: M RAD 12:56
PROVIDERS: ATTEND General Practice
DX: C34.31 Malignant neoplasm of lower lobe, right bronchus or lung (principal); N28.1 Cyst of kidney, acquired; R91.8 Other nonspecific abnormal finding of lung field
CPT/HCPCS: 71260; Q9967

== ENCOUNTER 2021-06-23 14:56 | Outpatient (CLI) | payer MEDICARE, OTHER ==
[~2021-06-23] VITALS: Ht 165.1 cm; Wt 54.5 kg
[~2021-06-23 14:56] MED LIST changes: -ISOVUE-370 76% 100ML VIAL As Ordered ONE
[2021-06-23 15:00] VITALS: BP 134/63
[2021-06-23] MEDS ORDERED: VEDOLIZUMAB 300 MG in NS 250 ML IV ONE (15:00)
[2021-06-23 16:25] VITALS: BP 107/51
== END 2021-06-23 16:25 | disposition home or self-care (01) ==
LOC: M INFU 14:56
PROVIDERS: ATTEND Internal Medicine Gastroenterology
DX: K50.90 Crohn's disease, unspecified, without complications (principal); Z88.0 Allergy status to penicillin; Z88.1 Allergy status to other antibiotic agents; Z88.8 Allergy status to other drugs, medicaments and biological substances
CPT/HCPCS: 96365; J3380

== ENCOUNTER → 2021-06-26 | Outpatient (CLI) | payer MEDICARE, OTHER | LOC: M ONCR 10:30 | PROVIDERS: ATTEND General Practice | DX: Z08 Encounter for follow-up examination after completed treatment for malignant neoplasm (principal); Z85.118 Personal history of other malignant neoplasm of bronchus and lung; Z79.899 Other long term (current) drug therapy; Z86.16 Personal history of COVID-19; Z87.891 Personal history of nicotine dependence; Z88.0 Allergy status to penicillin; Z88.1 Allergy status to other antibiotic agents; Z91.09 Other allergy status, other than to drugs and biological substances; Z91.048 Other nonmedicinal substance allergy status; R09.82 Postnasal drip; J34.89 Other specified disorders of nose and nasal sinuses; Z92.3 Personal history of irradiation; Z88.8 Allergy status to other drugs, medicaments and biological substances ==

== ENCOUNTER 2021-08-19 15:22 | Outpatient (CLI) | payer MEDICARE, OTHER ==
[~2021-08-19] VITALS: Ht 165.1 cm; Wt 54.5 kg
[2021-08-19] MEDS ORDERED: VEDOLIZUMAB 300 MG in NS 250 ML IV ONE (15:30)
[2021-08-19 15:36] VITALS: BP 136/68
[2021-08-19 17:05] VITALS: BP_SYST 54
== END 2021-08-19 17:00 | disposition home or self-care (01) ==
LOC: M INFU 15:22
PROVIDERS: ATTEND Internal Medicine Gastroenterology
DX: K50.919 Crohn's disease, unspecified, with unspecified complications (principal); Z88.0 Allergy status to penicillin; Z88.1 Allergy status to other antibiotic agents; Z88.8 Allergy status to other drugs, medicaments and biological substances; Z91.89 Other specified personal risk factors, not elsewhere classified
CPT/HCPCS: 96365; J3380

== ENCOUNTER 2021-10-13 14:35 | Outpatient (CLI) | payer MEDICARE, OTHER ==
[~2021-10-13] VITALS: Ht 165.1 cm; Wt 54.5 kg
[2021-10-13] MEDS ORDERED: VEDOLIZUMAB 300 MG in NS 250 ML IV ONE (15:00)
== END 2021-10-13 15:40 | disposition home or self-care (01) ==
LOC: M INFU 14:35
PROVIDERS: ATTEND Internal Medicine Gastroenterology
DX: K50.90 Crohn's disease, unspecified, without complications (principal); Z88.0 Allergy status to penicillin; Z88.1 Allergy status to other antibiotic agents; Z88.8 Allergy status to other drugs, medicaments and biological substances
CPT/HCPCS: 96365; J3380

== ENCOUNTER 2021-12-08 14:50 | Outpatient (CLI) | payer MEDICARE, OTHER ==
[2021-12-08 14:45] VITALS: BP 156/76
[2021-12-08] MEDS ORDERED: VEDOLIZUMAB 300 MG in NS 250 ML IV ONE (15:00)
[2021-12-08 16:11] VITALS: BP 138/66
== END 2021-12-08 16:15 | disposition home or self-care (01) ==
LOC: M INFU 14:50
PROVIDERS: ATTEND Internal Medicine Gastroenterology
DX: K50.90 Crohn's disease, unspecified, without complications (principal); Z88.0 Allergy status to penicillin; Z88.1 Allergy status to other antibiotic agents; Z88.8 Allergy status to other drugs, medicaments and biological substances
CPT/HCPCS: 96365; J3380

== ENCOUNTER → 2021-12-16 | Outpatient (CLI) | payer MEDICARE, OTHER ==
[~2021-12-16] MED LIST changes: +ISOVUE-370 76% 100ML VIAL As Ordered ONE
== END ==
LOC: M RAD 13:11
PROVIDERS: ATTEND General Practice
DX: C34.31 Malignant neoplasm of lower lobe, right bronchus or lung (principal); I70.0 Atherosclerosis of aorta
CPT/HCPCS: 71260; Q9967

== ENCOUNTER → 2021-12-26 | Outpatient (CLI) | payer MEDICARE, OTHER ==
[~2021-12-26] MED LIST changes: -ISOVUE-370 76% 100ML VIAL As Ordered ONE
== END ==
LOC: M ONCR 11:23
PROVIDERS: ATTEND General Practice
DX: C34.31 Malignant neoplasm of lower lobe, right bronchus or lung (principal); R09.82 Postnasal drip; Z79.84 Long term (current) use of oral hypoglycemic drugs; Z79.899 Other long term (current) drug therapy; Z87.891 Personal history of nicotine dependence; Z88.0 Allergy status to penicillin; Z88.1 Allergy status to other antibiotic agents; Z88.8 Allergy status to other drugs, medicaments and biological substances; Z91.048 Other nonmedicinal substance allergy status; Z91.09 Other allergy status, other than to drugs and biological substances; Z92.3 Personal history of irradiation

== ENCOUNTER 2022-02-02 15:05 | Outpatient (CLI) | payer MEDICARE, OTHER ==
[~2022-02-02] VITALS: Ht 154.9 cm; Wt 63.5 kg
[2022-02-02 15:05] VITALS: BP 168/77
[~2022-02-02 15:05] MED LIST changes: +VEDOLIZUMAB 300 MG in NS 250 ML IV ONE
[2022-02-02 16:35] VITALS: BP 158/82
== END 2022-02-02 16:35 | disposition home or self-care (01) ==
LOC: M INFU 15:05
PROVIDERS: ATTEND Internal Medicine Gastroenterology
DX: K50.90 Crohn's disease, unspecified, without complications (principal); Z88.0 Allergy status to penicillin; Z88.1 Allergy status to other antibiotic agents; Z88.8 Allergy status to other drugs, medicaments and biological substances
CPT/HCPCS: 96365; J3380

== ENCOUNTER 2022-03-30 15:00 | Outpatient (CLI) | payer MEDICARE, OTHER ==
[~2022-03-30] VITALS: Ht 154.9 cm; Wt 63.5 kg
[2022-03-30 15:00] VITALS: BP 145/66
== END 2022-03-30 16:25 | disposition home or self-care (01) ==
LOC: M INFU 15:00
PROVIDERS: ATTEND Internal Medicine Gastroenterology
DX: K50.90 Crohn's disease, unspecified, without complications (principal); Z88.0 Allergy status to penicillin; Z88.8 Allergy status to other drugs, medicaments and biological substances
CPT/HCPCS: 96365; J3380

== ENCOUNTER 2022-05-25 15:04 | Outpatient (CLI) | payer MEDICARE, OTHER ==
[~2022-05-25] VITALS: Ht 154.9 cm; Wt 63.0 kg
[2022-05-25 15:15] VITALS: BP 161/98
== END 2022-05-25 16:10 | disposition home or self-care (01) ==
LOC: M INFU 15:04
PROVIDERS: ATTEND Internal Medicine Gastroenterology
DX: K50.90 Crohn's disease, unspecified, without complications (principal); Z88.1 Allergy status to other antibiotic agents; Z88.0 Allergy status to penicillin; Z88.8 Allergy status to other drugs, medicaments and biological substances
CPT/HCPCS: 96365; J3380

== ENCOUNTER → 2022-06-23 | Outpatient (REF) | payer MEDICARE, OTHER ==
[~2022-06-23] MED LIST changes: -VEDOLIZUMAB 300 MG in NS 250 ML IV ONE
== END ==
LOC: M LAB REF 13:19
PROVIDERS: ATTEND Internal Medicine Gastroenterology
DX: K50.018 Crohn's disease of small intestine with other complication (principal)

== ENCOUNTER 2022-07-20 15:05 | Outpatient (CLI) | payer MEDICARE, OTHER ==
[~2022-07-20] VITALS: Ht 154.9 cm; Wt 63.0 kg
[2022-07-20 15:05] VITALS: BP 168/77; O2SAT 97
[2022-07-20] MEDS ORDERED: VEDOLIZUMAB 300 MG in NS 250 ML IV ONE (15:40)
[2022-07-20 16:42] VITALS: BP 155/63; O2SAT 98
== END 2022-07-20 16:45 | disposition home or self-care (01) ==
LOC: M INFU 15:05
PROVIDERS: ATTEND Internal Medicine Gastroenterology
DX: K50.90 Crohn's disease, unspecified, without complications (principal); Z88.0 Allergy status to penicillin; Z88.1 Allergy status to other antibiotic agents; Z88.8 Allergy status to other drugs, medicaments and biological substances
CPT/HCPCS: 96365; J3380

== ENCOUNTER → 2022-09-10 | Outpatient (CLI) | payer MEDICARE, OTHER | LOC: M WHC 11:05 | PROVIDERS: ATTEND Nurse Practitioner | DX: Z12.31 Encounter for screening mammogram for malignant neoplasm of breast (principal) ==

== ENCOUNTER 2022-09-14 15:20 | Outpatient (CLI) | payer MEDICARE, OTHER ==
[~2022-09-14] VITALS: Ht 171.4 cm; Wt 55.0 kg
[~2022-09-14 15:20] MED LIST changes: +VEDOLIZUMAB 300 MG in NS 250 ML IV ONE
[2022-09-14 15:30] VITALS: BP 140/69; O2SAT 97
[2022-09-14 16:55] VITALS: BP 103/55; O2SAT 97
== END 2022-09-14 16:55 | disposition home or self-care (01) ==
LOC: M INFU 15:20
PROVIDERS: ATTEND Internal Medicine Gastroenterology
DX: K50.90 Crohn's disease, unspecified, without complications (principal); Z88.0 Allergy status to penicillin; Z88.1 Allergy status to other antibiotic agents; Z88.8 Allergy status to other drugs, medicaments and biological substances
CPT/HCPCS: 96365; J3380

== ENCOUNTER → 2022-10-30 | Outpatient (CLI) | payer MEDICARE, OTHER ==
[~2022-10-30] MED LIST changes: -VEDOLIZUMAB 300 MG in NS 250 ML IV ONE
[2022-10-30 09:39] LABS: BASO % 0.3 % (0.0-1.0); EOS # 0.1 10^3/uL (0.0-0.5); HEMOGLOBIN 12.2 g/dl (12.0-15.5); LYMPH # 1.3 10^3/uL (1.5-5.0); LYMPH % 21.7 % (24.0-44.0); MEAN CORPUSCULAR HEMOGLOBIN 30.6 pg (27.0-33.0); MEAN CORPUSCULAR HGB CONC 32.1 g/dl (32.0-36.5); MEAN CORPUSCULAR VOLUME 95.2 fl (80.0-96.0); MONO # 0.5 10^3/uL (0.0-0.8); MONO % 7.6 % (2.0-8.0); NEUTROPHILS # 4.1 10^3/uL (1.5-8.5); NEUTROPHILS % 69.1 % (36.0-66.0); PLATELET COUNT, AUTOMATED 149 10^3/uL (150-450); RED BLOOD COUNT 3.99 10^6/uL (4.00-5.40); WHITE BLOOD COUNT 5.9 10^3/uL (4.0-10.0)
[2022-10-30 09:55] LABS: ALBUMIN 4.1 G/DL (3.2-5.2); ALKALINE PHOSPHATASE 106 U/L (46-116); ALT/SGPT 39 U/L (7.0-40); AST/SGOT 21 U/L (<34); BLOOD UREA NITROGEN 36 MG/DL (9-23); CALCIUM LEVEL 9.6 MG/DL (8.3-10.6); CARBON DIOXIDE LEVEL 23 MMOL/L (20-31); CHLORIDE LEVEL 107 MMOL/L (98-107); CHOLESTEROL LEVEL 179 MG/DL (<200); CREATININE FOR GFR 0.95 MG/DL (0.55-1.30); GLUCOSE, FASTING 190 MG/DL (74-106); HDL CHOLESTEROL 41.6 MG/DL (>40); NON-HDL-C 137.4 MG/DL; POTASSIUM SERUM 4.8 MMOL/L (3.5-5.1); SODIUM LEVEL 140 MMOL/L (136-145); TOTAL PROTEIN 7.4 G/DL (5.7-8.2); TRIGLYCERIDES LEVEL 443 MG/DL (<150)
[2022-10-30 10:13] LABS: HEMOGLOBIN A1c 10.9 % (4.0-6.0)
== END ==
LOC: M LAB 08:44
PROVIDERS: ATTEND Nurse Practitioner Family
DX: I10 Essential (primary) hypertension (principal); E78.5 Hyperlipidemia, unspecified; E11.9 Type 2 diabetes mellitus without complications

== ENCOUNTER → 2022-11-24 | Outpatient (CLI) | payer MEDICARE, OTHER | LOC: M WHC 13:43 | PROVIDERS: ATTEND Nurse Practitioner Family | DX: Z13.820 Encounter for screening for osteoporosis (principal); Z78.0 Asymptomatic menopausal state ==

== ENCOUNTER → 2022-12-17 | Outpatient (CLI) | payer MEDICARE, OTHER ==
[~2022-12-17] MED LIST changes: +ISOVUE-370 76% 100ML VIAL As Ordered ONE
== END ==
LOC: M RAD 10:57
PROVIDERS: ATTEND General Practice
DX: C34.31 Malignant neoplasm of lower lobe, right bronchus or lung (principal); J98.4 Other disorders of lung
CPT/HCPCS: 71260; Q9967

== ENCOUNTER 2023-01-04 15:27 | Outpatient (CLI) | payer MEDICARE, OTHER ==
[~2023-01-04] VITALS: Ht 157.5 cm; Wt 62.2 kg
[2023-01-04 15:25] VITALS: BP 134/62; O2SAT 98
[~2023-01-04 15:27] MED LIST changes: -ISOVUE-370 76% 100ML VIAL As Ordered ONE
[2023-01-04] MEDS ORDERED: VEDOLIZUMAB 300 MG in NS 250 ML IV ONE (15:30)
[2023-01-04 15:55] VITALS: BP 134/62; TEMP 97; O2SAT 98
[2023-01-04 16:30] VITALS: BP 135/64; O2SAT 99
== END 2023-01-04 16:30 ==
LOC: M INFU 15:27
PROVIDERS: ATTEND Internal Medicine Gastroenterology
DX: K50.90 Crohn's disease, unspecified, without complications (principal); Z88.0 Allergy status to penicillin; Z88.1 Allergy status to other antibiotic agents; Z88.8 Allergy status to other drugs, medicaments and biological substances
CPT/HCPCS: 96365; J3380

== ENCOUNTER → 2023-01-13 | Outpatient (CLI) | payer MEDICARE, OTHER | LOC: M ONCR 11:23 | PROVIDERS: ATTEND General Practice | DX: C34.31 Malignant neoplasm of lower lobe, right bronchus or lung (principal); Z71.2 Person consulting for explanation of examination or test findings; Z79.84 Long term (current) use of oral hypoglycemic drugs; Z79.899 Other long term (current) drug therapy; Z87.891 Personal history of nicotine dependence; Z88.0 Allergy status to penicillin; Z88.1 Allergy status to other antibiotic agents; Z88.8 Allergy status to other drugs, medicaments and biological substances; Z91.02 Food additives allergy status; Z91.048 Other nonmedicinal substance allergy status; Z92.3 Personal history of irradiation ==

== ENCOUNTER → 2023-01-27 | Outpatient (CLI) | payer MEDICARE, OTHER ==
[2023-01-27 12:28] LABS: HEMOGLOBIN A1c 7.2 % (4.0-6.0)
== END ==
LOC: M LAB 10:40
PROVIDERS: ATTEND Nurse Practitioner Family
DX: E11.9 Type 2 diabetes mellitus without complications (principal)

== ENCOUNTER 2023-03-01 14:55 | Outpatient (CLI) | payer MEDICARE, OTHER ==
[~2023-03-01] VITALS: Ht 162.6 cm; Wt 60.9 kg
[2023-03-01 15:25] VITALS: BP 147/68; O2SAT 98
[2023-03-01] MEDS ORDERED: VEDOLIZUMAB 300 MG in NS 250 ML IV ONE (15:30)
[2023-03-01 16:34] VITALS: BP 152/64; O2SAT 98
== END 2023-03-01 16:40 ==
LOC: M INFU 14:55
PROVIDERS: ATTEND Internal Medicine Gastroenterology
DX: K50.90 Crohn's disease, unspecified, without complications (principal); Z88.0 Allergy status to penicillin; Z88.1 Allergy status to other antibiotic agents
CPT/HCPCS: 96365; J3380

== ENCOUNTER → 2023-04-06 | Outpatient (CLI) | payer MEDICARE, OTHER ==
[2023-04-06 10:13] LABS: BASO % 0.4 % (0.0-1.0); EOS # 0.1 10^3/uL (0.0-0.5); EOS % 0.7 % (0.0-3.0); HEMATOCRIT 35.2 % (36.0-47.0); HEMOGLOBIN 11.7 g/dl (12.0-15.5); LYMPH # 1.4 10^3/uL (1.5-5.0); LYMPH % 19.3 % (24.0-44.0); MEAN CORPUSCULAR HEMOGLOBIN 32.1 pg (27.0-33.0); MEAN CORPUSCULAR HGB CONC 33.2 g/dl (32.0-36.5); MEAN CORPUSCULAR VOLUME 96.7 fl (80.0-96.0); MONO # 0.4 10^3/uL (0.0-0.8); MONO % 5.5 % (2.0-8.0); NEUTROPHILS # 5.2 10^3/uL (1.5-8.5); NEUTROPHILS % 73.7 % (36.0-66.0); PLATELET COUNT, AUTOMATED 177 10^3/uL (150-450); RED BLOOD COUNT 3.64 10^6/uL (4.00-5.40)
[2023-04-06 10:38] LABS: HEMOGLOBIN A1c 6.9 % (4.0-6.0)
[2023-04-06 10:50] LABS: CALCIUM LEVEL 9.5 MG/DL (8.3-10.6); CHOLESTEROL RISK RATIO 3.05 (<5); CREATININE FOR GFR 1.01 MG/DL (0.55-1.30); GLOMERULAR FILTRATION RATE 55.7 (>32); HDL CHOLESTEROL 49.8 MG/DL (>40); NON-HDL-C 102.2 MG/DL; POTASSIUM SERUM 4.7 MMOL/L (3.5-5.1)
== END ==
LOC: M LAB 09:24
PROVIDERS: ATTEND Nurse Practitioner Family
DX: E11.9 Type 2 diabetes mellitus without complications (principal); E78.5 Hyperlipidemia, unspecified; I10 Essential (primary) hypertension

== ENCOUNTER 2023-04-26 15:25 | Outpatient (CLI) | payer MEDICARE, OTHER ==
[~2023-04-26] VITALS: Ht 160 cm; Wt 65.0 kg
[2023-04-26 15:25] VITALS: BP 140/63; O2SAT 96
[2023-04-26] MEDS: VEDOLIZUMAB 300 MG in NS 250 ML IV ONE (15:49)
[2023-04-26 16:28] VITALS: BP 133/71; O2SAT 99
== END 2023-04-26 16:30 ==
LOC: M INFU 15:25
PROVIDERS: ATTEND Internal Medicine Gastroenterology
DX: K50.919 Crohn's disease, unspecified, with unspecified complications (principal); Z88.0 Allergy status to penicillin; Z88.1 Allergy status to other antibiotic agents
CPT/HCPCS: 96365; J3380

== ENCOUNTER 2023-06-21 15:00 | Outpatient (CLI) | payer MEDICARE, OTHER ==
[2023-06-21 15:00] VITALS: BP 126/8; O2SAT 97
[~2023-06-21 15:00] MED LIST changes: -ROSU10TA6 PO; +ROSU10TA61 PO
[2023-06-21] MEDS: VEDOLIZUMAB 300 MG in NS 250 ML IV ONE (15:26)
[2023-06-21 16:05] VITALS: BP 158/68; O2SAT 100
== END 2023-06-21 16:05 | disposition home or self-care (01) ==
LOC: M INFU 15:00
PROVIDERS: ATTEND Internal Medicine Gastroenterology
DX: K50.919 Crohn's disease, unspecified, with unspecified complications (principal); Z88.0 Allergy status to penicillin; Z88.1 Allergy status to other antibiotic agents; Z88.8 Allergy status to other drugs, medicaments and biological substances
CPT/HCPCS: 96365; J3380

== ENCOUNTER → 2023-08-13 | Outpatient (CLI) | payer MEDICARE, OTHER | LOC: M LAB 07:53 | PROVIDERS: ATTEND Nurse Practitioner Family | DX: E11.9 Type 2 diabetes mellitus without complications (principal) ==

== ENCOUNTER 2023-08-16 14:58 | Outpatient (CLI) | payer MEDICARE, OTHER ==
[~2023-08-16 14:58] MED LIST changes: +OMEG-28 PO; -OMEG1CAP85 PO
[2023-08-16 15:10] VITALS: BP 168/73; O2SAT 97
[2023-08-16] MEDS: VEDOLIZUMAB 300 MG in NS 250 ML IV ONE (15:38)
[2023-08-16 16:15] VITALS: BP 157/71; O2SAT 100
== END 2023-08-16 16:15 | disposition home or self-care (01) ==
LOC: M INFU 14:58
PROVIDERS: ATTEND Internal Medicine Gastroenterology
DX: K50.90 Crohn's disease, unspecified, without complications (principal); Z88.0 Allergy status to penicillin; Z88.1 Allergy status to other antibiotic agents; Z88.8 Allergy status to other drugs, medicaments and biological substances; Z91.89 Other specified personal risk factors, not elsewhere classified
CPT/HCPCS: 96365; J3380

== ENCOUNTER → 2023-09-07 | Outpatient (CLI) | payer MEDICARE, OTHER | LOC: M WHC 13:09 | PROVIDERS: ATTEND Nurse Practitioner Family | DX: Z12.31 Encounter for screening mammogram for malignant neoplasm of breast (principal); R92.333 Mammographic heterogeneous density, bilateral breasts ==

== ENCOUNTER 2023-10-11 15:13 | Outpatient (CLI) | payer MEDICARE, OTHER ==
[2023-10-11 15:15] VITALS: BP 126/58; O2SAT 96
[2023-10-11] MEDS: VEDOLIZUMAB 300 MG in NS 250 ML IV ONE (15:46)
[2023-10-11 16:24] VITALS: BP 139/63; O2SAT 99
== END 2023-10-11 16:25 ==
LOC: M INFU 15:13
PROVIDERS: ATTEND Internal Medicine Gastroenterology
DX: K50.90 Crohn's disease, unspecified, without complications (principal); Z88.0 Allergy status to penicillin; Z88.1 Allergy status to other antibiotic agents; Z88.8 Allergy status to other drugs, medicaments and biological substances; Z91.89 Other specified personal risk factors, not elsewhere classified
CPT/HCPCS: 96365; J3380

== ENCOUNTER 2023-11-07 09:32 | Emergency (ER) | payer MEDICARE, OTHER ==
[~2023-11-07] VITALS: Ht 162.6 cm; Wt 64.3 kg
[2023-11-07 14:06] VITALS: BP 151/72; TEMP 97.2; O2SAT 97
== END 2023-11-07 14:07 | disposition home or self-care (01) ==
LOC: M ED 09:32
DX: M25.551 Pain in right hip (principal); M16.11 Unilateral primary osteoarthritis, right hip; M19.011 Primary osteoarthritis, right shoulder; F03.90 Unspecified dementia, unspecified severity, without behavioral disturbance, psychotic disturbance, mood disturbance, and anxiety; I10 Essential (primary) hypertension; E78.00 Pure hypercholesterolemia, unspecified; K21.9 Gastro-esophageal reflux disease without esophagitis; K50.90 Crohn's disease, unspecified, without complications; E11.9 Type 2 diabetes mellitus without complications; F41.9 Anxiety disorder, unspecified; Z85.118 Personal history of other malignant neoplasm of bronchus and lung; Z87.440 Personal history of urinary (tract) infections; Z79.84 Long term (current) use of oral hypoglycemic drugs; Z88.0 Allergy status to penicillin; Z91.89 Other specified personal risk factors, not elsewhere classified; Z88.1 Allergy status to other antibiotic agents

== ENCOUNTER 2023-12-06 15:10 | Outpatient (CLI) | payer MEDICARE, OTHER ==
[~2023-12-06] VITALS: Ht 152.4 cm; Wt 63.9 kg
[2023-12-06 15:20] VITALS: BP 154/71; O2SAT 96
[2023-12-06] MEDS: VEDOLIZUMAB 300 MG in LR 250 ML IV ONE (15:41)
[2023-12-06 16:20] VITALS: BP 134/61; O2SAT 98
== END 2023-12-06 16:25 ==
LOC: M INFU 15:10
PROVIDERS: ATTEND Internal Medicine Gastroenterology
DX: K50.90 Crohn's disease, unspecified, without complications (principal); Z88.0 Allergy status to penicillin; Z88.1 Allergy status to other antibiotic agents; Z88.8 Allergy status to other drugs, medicaments and biological substances; Z91.89 Other specified personal risk factors, not elsewhere classified
CPT/HCPCS: 96413; J3380

== ENCOUNTER → 2023-12-27 | Outpatient (CLI) | payer MEDICARE, OTHER ==
[2023-12-27 12:27] LABS: HEMOGLOBIN A1c 8.2 % (4.0-6.0)
== END ==
LOC: M LAB 11:18
PROVIDERS: ATTEND Nurse Practitioner Family
DX: E11.9 Type 2 diabetes mellitus without complications (principal)

== ENCOUNTER → 2024-01-17 | Outpatient (CLI) | payer MEDICARE, OTHER | LOC: M RAD 12:18 | PROVIDERS: ATTEND General Practice | DX: C34.31 Malignant neoplasm of lower lobe, right bronchus or lung (principal); I25.10 Atherosclerotic heart disease of native coronary artery without angina pectoris; J98.4 Other disorders of lung ==

== ENCOUNTER → 2024-01-21 | Outpatient (CLI) | payer MEDICARE, OTHER | LOC: M ONCR 10:49 | PROVIDERS: ATTEND General Practice | DX: C34.31 Malignant neoplasm of lower lobe, right bronchus or lung (principal); Z92.3 Personal history of irradiation; Z87.891 Personal history of nicotine dependence; Z91.02 Food additives allergy status; Z88.0 Allergy status to penicillin; Z91.048 Other nonmedicinal substance allergy status; Z88.1 Allergy status to other antibiotic agents; Z88.8 Allergy status to other drugs, medicaments and biological substances; Z79.84 Long term (current) use of oral hypoglycemic drugs; Z79.899 Other long term (current) drug therapy ==

== ENCOUNTER → 2024-01-25 | Outpatient (REF) | payer MEDICARE, OTHER ==
[2024-01-25 12:54] LABS: APPEARANCE, URINE CLEAR (CLEAR); BACTERIA, URINE AUTO NEGATIVE (NEGATIVE); BILIRUBIN, URINE AUTO NEGATIVE (NEGATIVE); BLOOD, URINE BLOOD NEGATIVE (NEGATIVE); COLOR, URINE YELLOW (YELLOW); GLUCOSE, URINE (UA) AUTO 3+ mg/dL (NEGATIVE); KETONE, URINE AUTO NEGATIVE (NEGATIVE); LEUKOCYTE ESTERASE, URINE AUTO NEGATIVE (NEGATIVE); MUCUS, URINE SMALL (NEGATIVE); NITRITE, URINE AUTO NEGATIVE (NEGATIVE); PROTEIN, URINE AUTO NEGATIVE (NEGATIVE); RBC, URINE AUTO 0 /HPF (0-3); SPECIFIC GRAVITY URINE AUTO 1.025 (1.002-1.035); SQUAMOUS EPITHELIAL CELL UR AU 0 /HPF (0-6); UROBILINOGEN, URINE AUTO 0.2 mg/dL (0.0-2.0); WBC, URINE AUTO 1 /HPF (0-3)
== END ==
LOC: M LAB REF 12:06
PROVIDERS: ATTEND Nurse Practitioner Family
DX: R46.89 Other symptoms and signs involving appearance and behavior (principal)

== ENCOUNTER 2024-01-31 15:20 | Outpatient (CLI) | payer MEDICARE, OTHER ==
[~2024-01-31] VITALS: Ht 157.5 cm; Wt 65.0 kg
[2024-01-31 15:05] VITALS: BP 134/64; O2SAT 97
[2024-01-31] MEDS: VEDOLIZUMAB 300 MG in NS 250 ML IV ONE (15:53)
[2024-01-31 16:30] VITALS: BP 108/53; O2SAT 98
== END 2024-01-31 16:30 ==
LOC: M INFU 15:20
PROVIDERS: ATTEND Internal Medicine Gastroenterology
DX: K50.90 Crohn's disease, unspecified, without complications (principal); Z88.0 Allergy status to penicillin; Z88.1 Allergy status to other antibiotic agents; Z91.89 Other specified personal risk factors, not elsewhere classified
CPT/HCPCS: 96413; J3380

== ENCOUNTER 2024-03-27 15:04 | Outpatient (CLI) | payer MEDICARE, OTHER ==
[~2024-03-27] VITALS: Ht 165.1 cm; Wt 65.0 kg
[2024-03-27 15:20] VITALS: BP 160/74; O2SAT 98
[2024-03-27] MEDS: VEDOLIZUMAB 300 MG in NS 250 ML IV ONE (15:41)
[2024-03-27 16:21] VITALS: BP 138/64; O2SAT 98
== END 2024-03-27 16:20 ==
LOC: M INFU 15:04
PROVIDERS: ATTEND Internal Medicine Gastroenterology
DX: K50.919 Crohn's disease, unspecified, with unspecified complications (principal); Z88.0 Allergy status to penicillin; Z88.1 Allergy status to other antibiotic agents; Z91.89 Other specified personal risk factors, not elsewhere classified
CPT/HCPCS: 96413; J3380

== ENCOUNTER → 2024-03-30 | Outpatient (CLI) | payer MEDICARE, OTHER ==
[2024-03-30 18:05] LABS: HEMOGLOBIN A1c 7.8 % (4.0-6.0)
== END ==
LOC: M RAD 15:23
PROVIDERS: ATTEND Nurse Practitioner Family
DX: E11.9 Type 2 diabetes mellitus without complications (principal); M25.562 Pain in left knee; M17.12 Unilateral primary osteoarthritis, left knee; M25.462 Effusion, left knee

== ENCOUNTER → 2024-04-17 | Outpatient (REF) | payer MEDICARE, OTHER ==
[2024-04-17 17:21] LABS: APPEARANCE, URINE CLEAR (CLEAR); BACTERIA, URINE AUTO NEGATIVE (NEGATIVE); BILIRUBIN, URINE AUTO NEGATIVE (NEGATIVE); BLOOD, URINE BLOOD NEGATIVE (NEGATIVE); COLOR, URINE YELLOW (YELLOW); GLUCOSE, URINE (UA) AUTO 3+ mg/dL (NEGATIVE); KETONE, URINE AUTO NEGATIVE (NEGATIVE); LEUKOCYTE ESTERASE, URINE AUTO NEGATIVE (NEGATIVE); NITRITE, URINE AUTO NEGATIVE (NEGATIVE); PROTEIN, URINE AUTO NEGATIVE (NEGATIVE); RBC, URINE AUTO 0 /HPF (0-3); SPECIFIC GRAVITY URINE AUTO 1.013 (1.002-1.035); SQUAMOUS EPITHELIAL CELL UR AU 0 /HPF (0-6); UROBILINOGEN, URINE AUTO 0.2 mg/dL (0.0-2.0); WBC, URINE AUTO 1 /HPF (0-3)
== END ==
LOC: M LAB REF 16:37
PROVIDERS: ATTEND Nurse Practitioner Family
DX: F41.9 Anxiety disorder, unspecified (principal); R45.1 Restlessness and agitation

== ENCOUNTER 2024-05-22 15:22 | Outpatient (CLI) | payer MEDICARE, OTHER ==
[~2024-05-22] VITALS: Ht 157.5 cm; Wt 61.3 kg
[2024-05-22 15:38] VITALS: BP 142/63; O2SAT 97
[2024-05-22] MEDS: VEDOLIZUMAB 300 MG in NS 250 ML IV ONE (15:57)
[2024-05-22 16:40] VITALS: BP 142/70; O2SAT 100
[2024-05-22 16:46] VITALS: BP 142/70; TEMP 36; O2SAT 100
== END 2024-05-22 16:40 ==
LOC: M INFU 15:22
PROVIDERS: ATTEND Internal Medicine Gastroenterology
DX: K50.90 Crohn's disease, unspecified, without complications (principal); Z88.0 Allergy status to penicillin; Z88.1 Allergy status to other antibiotic agents; Z88.8 Allergy status to other drugs, medicaments and biological substances; Z91.048 Other nonmedicinal substance allergy status
CPT/HCPCS: 96365; J3380

== ENCOUNTER → 2024-05-24 | Outpatient (CLI) | payer MEDICARE, OTHER ==
[2024-05-24 16:17] LABS: ALBUMIN 3.7 G/DL (3.2-5.2); BILIRUBIN,TOTAL 0.6 MG/DL (0.3-1.2); CALCIUM LEVEL 9.4 MG/DL (8.3-10.6); CREATININE FOR GFR 1.25 MG/DL (0.55-1.30); GLOMERULAR FILTRATION RATE 42.5 (>32); POTASSIUM SERUM 5.3 MMOL/L (3.5-5.1); TOTAL PROTEIN 6.9 G/DL (5.7-8.2)
== END ==
LOC: M LAB 15:24
PROVIDERS: ATTEND Nurse Practitioner Family
DX: E11.9 Type 2 diabetes mellitus without complications (principal)

== ENCOUNTER 2024-09-11 15:03 | Outpatient (CLI) | payer MEDICARE, OTHER ==
[~2024-09-11] VITALS: Ht 160 cm; Wt 65.9 kg
[~2024-09-11 15:03] MED LIST changes: +SLOW1TAB3 PO; -SLOWTAB2 PO
[2024-09-11 15:15] VITALS: BP 141/65; O2SAT 99
[2024-09-11] MEDS: VEDOLIZUMAB 300 MG in NS 250 ML IV ONE (15:59)
[2024-09-11 16:39] VITALS: BP 128/59; O2SAT 99
[2024-09-11 16:40] VITALS: BP 128/59; TEMP 35.9; O2SAT 99
== END 2024-09-11 16:40 | disposition home or self-care (01) ==
LOC: M INFU 15:03
PROVIDERS: ATTEND Internal Medicine Gastroenterology
DX: K50.90 Crohn's disease, unspecified, without complications (principal); Z88.0 Allergy status to penicillin; Z88.1 Allergy status to other antibiotic agents; Z91.89 Other specified personal risk factors, not elsewhere classified; E11.9 Type 2 diabetes mellitus without complications; I10 Essential (primary) hypertension
CPT/HCPCS: 36592; 80053; 83036; 96413; J3380

== ENCOUNTER → 2024-09-28 | Outpatient (CLI) | payer MEDICARE, OTHER | LOC: M LAB 13:28 | PROVIDERS: ATTEND Internal Medicine Gastroenterology | DX: K50.018 Crohn's disease of small intestine with other complication (principal) ==

== ENCOUNTER 2024-11-06 13:31 | Outpatient (CLI) | payer MEDICARE, OTHER ==
[~2024-11-06] VITALS: Ht 160 cm; Wt 62.0 kg
[~2024-11-06 13:31] MED LIST changes: -EZET10TA21 PO; +EZET10TA57 PO
[2024-11-06 14:40] VITALS: BP 124/60; O2SAT 98
[2024-11-06] MEDS: VEDOLIZUMAB 300 MG in NS 250 ML IV ONE (15:00)
[2024-11-06 15:40] VITALS: BP 158/70; O2SAT 98
== END 2024-11-06 15:40 | disposition home or self-care (01) ==
LOC: M INFU 13:31
PROVIDERS: ATTEND Internal Medicine Gastroenterology
DX: K50.018 Crohn's disease of small intestine with other complication (principal); Z88.0 Allergy status to penicillin; Z88.1 Allergy status to other antibiotic agents; Z88.8 Allergy status to other drugs, medicaments and biological substances
CPT/HCPCS: 96413; J3380

== ENCOUNTER 2024-12-21 13:22 | Observation (INO) | payer MEDICARE, OTHER ==
[~2024-12-21] VITALS: Ht 160 cm; Wt 64.2 kg
[~2024-12-21 13:22] MED LIST changes: -ROSU10TA61 PO; +ROSU10TA90 PO
[2024-12-21 14:01] LABS: BASO # 0.0 10^3/uL (0.0-0.2); BASO % 0.3 % (0.0-1.0); EOS # 0.1 10^3/uL (0.0-0.5); EOS % 1.5 % (0.0-3.0); LYMPH # 2.1 10^3/uL (1.5-5.0); LYMPH % 29.3 % (24.0-44.0); MONO # 0.6 10^3/uL (0.0-0.8); MONO % 8.8 % (2.0-8.0); NEUTROPHILS # 4.3 10^3/uL (1.5-8.5); NEUTROPHILS % 59.7 % (36.0-66.0); PLATELET COUNT, AUTOMATED 240 10^3/uL (150-450)
[2024-12-21 14:06] VITALS: BP 183/78; TEMP 98.2; O2SAT 99
[2024-12-21 14:27] VITALS: BP 154/70; TEMP 98.1; O2SAT 99
[2024-12-21 14:29] LABS: CALCIUM LEVEL 9.4 MG/DL (8.3-10.6); CARBON DIOXIDE LEVEL 25.0 MMOL/L (20-31); CHLORIDE LEVEL 107.0 MMOL/L (98-107); CREATININE FOR GFR 1.18 MG/DL (0.55-1.30); GLOMERULAR FILTRATION RATE 45.5 (>32); INR 0.95; POTASSIUM SERUM 5.0 MMOL/L (3.5-5.1); SODIUM LEVEL 143.0 MMOL/L (136-145)
[2024-12-21 14:45] VITALS: BP 173/72; TEMP 97.6; O2SAT 98
[2024-12-21] MEDS ORDERED: ISOVUE-370 76% 100 ML VIAL As Ordered ONE (15:01)
[2024-12-21] MEDS ORDERED: [UNRECOGNIZED DRUG - CODE] PO (15:33)
[2024-12-21] MEDS ORDERED: OCUVTAB4 PO (15:33)
[2024-12-21] MEDS ORDERED: MULT-40 PO (15:33)
[2024-12-21] MEDS ORDERED: GLIP5TAB17 PO (15:33)
[2024-12-21] MEDS ORDERED: JARD1TAB PO (15:36)
[2024-12-21] MEDS ORDERED: LOPE1CAP5 PO (15:43)
[2024-12-21] MEDS ORDERED: LORA-931 PO (15:43)
[2024-12-21] MEDS ORDERED: FAMO20TA4 PO (15:43)
[2024-12-21] MEDS ORDERED: VALS1TAB68 PO (15:43)
[2024-12-21] MEDS ORDERED: ISOS1TAB35 PO (15:43)
[2024-12-21] MEDS ORDERED: VITA100093 PO (15:43)
[2024-12-21] MEDS ORDERED: GUAI600T54 PO (15:43)
[2024-12-21] MEDS ORDERED: APAP500T10 PO (15:43)
[2024-12-21] MEDS ORDERED: HOME MED LIST COMPLETE! XX SCH (15:45)
[2024-12-21 15:58] VITALS: BP 168/75; TEMP 98.4; O2SAT 98
[2024-12-21 16:58] VITALS: BP 175/80; TEMP 97.5; O2SAT 97
[2024-12-21] MEDS: PRAMIPEXOLE 0.25 MG TAB PO STA (17:35)
[2024-12-21] MEDS ORDERED: ACETAMINOPHEN 500 MG TAB PO PRN (18:15)
[2024-12-21] MEDS ORDERED: LORazepam 0.5 MG TAB PO SCH (18:30)
[2024-12-21] MEDS ORDERED: LOPERAMIDE 2 MG CAPLET PO PRN (18:35)
[2024-12-21] MEDS ORDERED: GLUCAGON INJ 1 MG VIAL SC PRN (18:45)
[2024-12-21] MEDS ORDERED: GLUCOSE 4 GM CHEW PO PRN (18:45)
[2024-12-21] MEDS ORDERED: DEXTROSE 50% 50 ML SYRINGE IV PRN (18:45)
[2024-12-21] MEDS: INSULIN LISPRO (NovoLOG) PER UNIT SC SCH ×2 (19:12→21:00)
[2024-12-21] MEDS: CLOPIDOGREL 75 MG TAB PO SCH (19:14)
[2024-12-21] MEDS: NS (Normal Saline) 0.9% 1,000 ML IV ONE (19:14)
[2024-12-21] MEDS: ASPIRIN 81 MG CHEWABLE TABLET PO SCH (19:14)
[2024-12-21 19:44] LABS: ESTIMATED AVERAGE GLUCOSE 169.0 MG/DL (60-110)
[2024-12-21] MEDS: FAMOTIDINE 20 MG TAB PO SCH (22:06)
[2024-12-21] MEDS: ATORVASTATIN 20 MG TAB PO SCH (22:06)
[2024-12-21] MEDS: HEPARIN SOD 5000 UNITS/ML 1 ML VIAL/SYRINGE SQ SCH (22:06)
[2024-12-21 22:34] VITALS: BP 157/68; TEMP 97.6; O2SAT 97
[2024-12-22 03:41] VITALS: BP 130/80; TEMP 98.1; O2SAT 97
[2024-12-22 07:11] LABS: PLATELET COUNT, AUTOMATED 193 10^3/uL (150-450)
[2024-12-22 07:28] LABS: CALCIUM LEVEL 8.4 MG/DL (8.3-10.6); CARBON DIOXIDE LEVEL 22.0 MMOL/L (20-31); CHLORIDE LEVEL 107.0 MMOL/L (98-107); CHOLESTEROL LEVEL 134.0 MG/DL (<200); CHOLESTEROL RISK RATIO 3.47 (<5); CREATININE FOR GFR 0.9 MG/DL (0.55-1.30); GLOMERULAR FILTRATION RATE 63.0 (>32); LDL CHOLESTEROL 26.6 MG/DL (<100); NON-HDL-C 95.4 MG/DL; POTASSIUM SERUM 4.6 MMOL/L (3.5-5.1); SODIUM LEVEL 141.0 MMOL/L (136-145); TRIGLYCERIDES LEVEL 344.0 MG/DL (<150)
[2024-12-22] MEDS ORDERED: ASPI81TA26 PO (09:37)
[2024-12-22] MEDS ORDERED: CLOP75TA2 PO (09:37)
[2024-12-22] MEDS ORDERED: ATOR40TA75 PO (09:37)
[2024-12-22] MEDS: FERROUS SULFATE 325 MG TAB PO SCH (09:41)
[2024-12-22] MEDS: LORATADINE 10 MG TAB PO SCH (09:41)
[2024-12-22] MEDS: VITAMIN D 1,000 INTERNATIONAL UNITS TABLET PO SCH (09:42)
[2024-12-22 09:51] VITALS: BP 138/80
[2024-12-22] MEDS: ISOSORBIDE MONONITRATE 30 MG XR TAB PO SCH (09:51)
== END 2024-12-22 14:30 | disposition home or self-care (01) ==
LOC: EDBD 13:22 → M ED 13:22 → M ED INP 18:11 → INTOOBSV 18:11 → M MSPAV 23:04
PROVIDERS: ADMIT Internal Medicine; ATTEND Family Medicine
DX: G45.9 Transient cerebral ischemic attack, unspecified (principal); Z66 Do not resuscitate; R29.810 Facial weakness; Z85.118 Personal history of other malignant neoplasm of bronchus and lung; Z92.3 Personal history of irradiation; K50.90 Crohn's disease, unspecified, without complications; E11.9 Type 2 diabetes mellitus without complications; I10 Essential (primary) hypertension; K21.9 Gastro-esophageal reflux disease without esophagitis; D50.9 Iron deficiency anemia, unspecified; I25.10 Atherosclerotic heart disease of native coronary artery without angina pectoris; Z95.5 Presence of coronary angioplasty implant and graft; M19.90 Unspecified osteoarthritis, unspecified site; F03.90 Unspecified dementia, unspecified severity, without behavioral disturbance, psychotic disturbance, mood disturbance, and anxiety; R47.81 Slurred speech; R53.1 Weakness; Z90.49 Acquired absence of other specified parts of digestive tract; Z79.84 Long term (current) use of oral hypoglycemic drugs; Z79.899 Other long term (current) drug therapy; Z88.0 Allergy status to penicillin; Z88.1 Allergy status to other antibiotic agents; Z91.048 Other nonmedicinal substance allergy status; Z88.8 Allergy status to other drugs, medicaments and biological substances
CPT/HCPCS: 36415; 70450; 70496; 70498; 70551; 71045; 71250; 80047; 80048; 80061; 83036; 85025; 85027; 85610; 85730; 86850; 86900; 86901; 93005; 93041; 93306; 94760; 96360; 96361; 96372; 97161; 97165; 97530; 99285; G0378; J1815; Q9967

== ENCOUNTER 2025-01-01 14:33 | Outpatient (CLI) | payer MEDICARE, OTHER ==
[~2025-01-01] VITALS: Ht 154.9 cm; Wt 61.6 kg
[~2025-01-01 14:33] MED LIST changes: +ACETAMINOPHEN 650 MG PO ONE; +APAP500T10 PO; +ASPI81TA26 PO; +ATOR40TA75 PO; +CLOP75TA2 PO; +FAMO20TA4 PO; +GLIP5TAB17 PO; +GUAI600T54 PO; +ISOS1TAB35 PO; +JARD1TAB PO; +LOPE1CAP5 PO; +LORA-931 PO; +MULT-40 PO; +OCUVTAB4 PO; +VALS1TAB68 PO; +VITA100093 PO; +[UNRECOGNIZED DRUG - CODE] PO
[2025-01-01 14:40] VITALS: BP 139/65; O2SAT 97
[2025-01-01] MEDS: VEDOLIZUMAB 300 MG in NS 250 ML IV ONE (15:42)
[2025-01-01 16:30] VITALS: BP 138/60; O2SAT 97
== END 2025-01-01 16:30 | disposition home or self-care (01) ==
LOC: M INFU 14:33
PROVIDERS: ATTEND Internal Medicine Gastroenterology
DX: K50.018 Crohn's disease of small intestine with other complication (principal); Z88.0 Allergy status to penicillin; Z88.1 Allergy status to other antibiotic agents; Z88.8 Allergy status to other drugs, medicaments and biological substances
CPT/HCPCS: 96365; J3380

== ENCOUNTER → 2025-01-02 | Outpatient (CLI) | payer MEDICARE, OTHER ==
[~2025-01-02] MED LIST changes: -ACETAMINOPHEN 650 MG PO ONE
== END ==
LOC: M ONCR 14:59
PROVIDERS: ATTEND General Practice
DX: C34.31 Malignant neoplasm of lower lobe, right bronchus or lung (principal); Z92.3 Personal history of irradiation; Z87.891 Personal history of nicotine dependence; Z91.048 Other nonmedicinal substance allergy status; Z88.0 Allergy status to penicillin; Z88.1 Allergy status to other antibiotic agents; Z88.8 Allergy status to other drugs, medicaments and biological substances; Z79.02 Long term (current) use of antithrombotics/antiplatelets; Z79.82 Long term (current) use of aspirin; Z79.899 Other long term (current) drug therapy

== ENCOUNTER 2025-02-02 11:58 | Emergency (ER) | payer MEDICARE, OTHER ==
[~2025-02-02] VITALS: Ht 160 cm; Wt 63.0 kg
[2025-02-02 12:13] VITALS: TEMP 97.5
[2025-02-02 13:01] LABS: BASO # 0.0 10^3/uL (0.0-0.2); BASO % 0.2 % (0.0-1.0); EOS # 0.2 10^3/uL (0.0-0.5); EOS % 2.6 % (0.0-3.0); LYMPH # 1.7 10^3/uL (1.5-5.0); LYMPH % 26.2 % (24.0-44.0); MONO # 0.6 10^3/uL (0.0-0.8); MONO % 8.6 % (2.0-8.0); NEUTROPHILS # 4.1 10^3/uL (1.5-8.5); NEUTROPHILS % 62.1 % (36.0-66.0); PLATELET COUNT, AUTOMATED 165 10^3/uL (150-450)
[2025-02-02] MEDS ORDERED: PRAMIPEXOLE 0.25 MG TAB PO ONE (13:25)
[2025-02-02 13:30] LABS: ALT/SGPT 30 U/L (7.0-40); AST/SGOT 27 U/L (<34); CALCIUM LEVEL 8.6 MG/DL (8.3-10.6); CARBON DIOXIDE LEVEL 22 MMOL/L (20-31); CHLORIDE LEVEL 115 MMOL/L (98-107); CREATININE FOR GFR 0.91 MG/DL (0.55-1.30); GLOMERULAR FILTRATION RATE 61.8 (>32); MAGNESIUM LEVEL 1.7 MG/DL (1.8-2.4); PHOSPHORUS LEVEL 3.8 MG/DL (2.4-5.1); POTASSIUM SERUM 4.7 MMOL/L (3.5-5.1); SODIUM LEVEL 146 MMOL/L (136-145)
[2025-02-02] MEDS: PRAMIPEXOLE 0.125 MG TAB PO SCH (13:48)
[2025-02-02] MEDS: ACETAMINOPHEN 500 MG TAB PO ONE (13:48)
[2025-02-02 14:09] VITALS: BP 185/75
[2025-02-02 14:13] VITALS: O2SAT 97
[2025-02-02] MEDS ORDERED: MAGNESIUM OXIDE 400 MG TAB PO ONE (14:20)
[2025-02-02] MEDS ORDERED: ASPI81TA26 PO (14:21)
[2025-02-02] MEDS ORDERED: MELA5TAB11 PO (14:21)
[2025-02-02] MEDS ORDERED: LOPE1CAP5 PO (14:21)
[2025-02-02] MEDS ORDERED: DONE10TA90 PO (14:21)
[2025-02-02] MEDS ORDERED: CLOP75TA2 PO (14:21)
[2025-02-02] MEDS ORDERED: METO1TAB7 PO (14:21)
[2025-02-02] MEDS ORDERED: SERT-141 PO (14:21)
[2025-02-02] MEDS ORDERED: JARD1TAB3 PO (14:21)
[2025-02-02] MEDS ORDERED: PRAM0.252 PO (14:21)
[2025-02-02] MEDS ORDERED: SERT25TA85 PO (14:21)
[2025-02-02] MEDS ORDERED: ATOR40TA75 PO (14:21)
[2025-02-02] MEDS ORDERED: EEG XX (14:22)
[2025-02-02] MEDS ORDERED: HOME MED LIST COMPLETE! XX SCH (14:25)
== END 2025-02-02 14:37 | disposition home or self-care (01) ==
LOC: M ED 11:58
DX: R55 Syncope and collapse (principal); E11.9 Type 2 diabetes mellitus without complications; I10 Essential (primary) hypertension; E78.5 Hyperlipidemia, unspecified; K21.9 Gastro-esophageal reflux disease without esophagitis; Z79.899 Other long term (current) drug therapy; Z88.0 Allergy status to penicillin; Z88.1 Allergy status to other antibiotic agents; Z88.8 Allergy status to other drugs, medicaments and biological substances; Z91.89 Other specified personal risk factors, not elsewhere classified

== ENCOUNTER 2025-02-10 13:24 | Emergency (ER) | payer MEDICARE, OTHER ==
[~2025-02-10 13:24] MED LIST changes: -HOLTER MONITOR XX
[2025-02-10 14:06] LABS: PLATELET COUNT, AUTOMATED 183 10^3/uL (150-450)
[2025-02-10 14:38] LABS: CALCIUM LEVEL 8.7 MG/DL (8.3-10.6); CARBON DIOXIDE LEVEL 23.0 MMOL/L (20-31); CHLORIDE LEVEL 111.0 MMOL/L (98-107); CREATININE FOR GFR 0.9 MG/DL (0.55-1.30); GLOMERULAR FILTRATION RATE 62.7 (>32); POTASSIUM SERUM 4.2 MMOL/L (3.5-5.1); SODIUM LEVEL 145.0 MMOL/L (136-145)
[2025-02-10] MEDS ORDERED: HOLTER MONITOR XX (16:13)
[2025-02-10 16:15] VITALS: BP 159/63; O2SAT 99
[2025-02-10] MEDS: PRAMIPEXOLE 0.125 MG TAB PO ONE (16:30)
[2025-02-10 16:36] VITALS: TEMP 97.8
== END 2025-02-10 16:37 | disposition home or self-care (01) ==
LOC: M ED 13:24
DX: I95.1 Orthostatic hypotension (principal); I25.10 Atherosclerotic heart disease of native coronary artery without angina pectoris; E11.9 Type 2 diabetes mellitus without complications; I10 Essential (primary) hypertension; E78.5 Hyperlipidemia, unspecified; F03.90 Unspecified dementia, unspecified severity, without behavioral disturbance, psychotic disturbance, mood disturbance, and anxiety; K21.9 Gastro-esophageal reflux disease without esophagitis; D50.9 Iron deficiency anemia, unspecified; K50.90 Crohn's disease, unspecified, without complications; Z79.82 Long term (current) use of aspirin; Z79.84 Long term (current) use of oral hypoglycemic drugs; Z79.899 Other long term (current) drug therapy; Z88.0 Allergy status to penicillin; Z91.89 Other specified personal risk factors, not elsewhere classified; Z88.1 Allergy status to other antibiotic agents; Z88.8 Allergy status to other drugs, medicaments and biological substances

== ENCOUNTER → 2025-02-10 | Outpatient (CLI) | payer MEDICARE, OTHER ==
[~2025-02-10] MED LIST changes: +DONE10TA90 PO; +EEG XX; +HOLTER MONITOR XX; +JARD1TAB3 PO; +MELA5TAB11 PO; +PRAM0.252 PO; +SERT-141 PO; +SERT25TA85 PO
== END ==
LOC: M EKG 16:24
PROVIDERS: ATTEND Emergency Medicine
DX: R55 Syncope and collapse (principal); Z53.9 Procedure and treatment not carried out, unspecified reason